=== PATIENT | female | born 1955 | race Caucasian/White ===

== ENCOUNTER → 2020-11-25 | Outpatient (CLI) | payer BC ==
[~2020-11-25] MED LIST: ATOR40TA75 PO; DICY10CA13 PO; IBUP200C25 PO; LOSA50TA88 PO; MONT10TA10 PO; PREV15CA PO; ROSU20TA5 PO; VITMTA PO
== END ==
LOC: M LABSMTC 09:29
PROVIDERS: ATTEND Anesthesiology
DX: Z01.818 Encounter for other preprocedural examination (principal); Z11.52 Encounter for screening for COVID-19

== ENCOUNTER 2020-11-30 11:34 | Day surgery (SDC) | payer BC, OTHER ==
[~2020-11-30] VITALS: Ht 160 cm; Wt 90.7 kg
[~2020-11-30 11:34] MED LIST changes: +NS 1,000 ML IV ONE
[2020-11-30] MEDS ORDERED: LIDOCAINE 2% 100MG/5ML SDV (FOR ANES.) As Ordered ONE (11:42)
[2020-11-30] MEDS ORDERED: propofoL 200 MG/20 ML VIAL As Ordered ONE (11:42)
[2020-11-30] MEDS ORDERED: fentaNYL 100 MCG/2 ML INJECTION (J3010) As Ordered ONE (11:42)
--- NOTE | 2020-11-30 13:22 | ROOR ---
Patient Name: Susie Segovia Procedure Date: 11/30/2020 1:07 PM Date of : 1955 Age: 65 Room: [facility] Gender: Female Note Status: Finalized Procedure: Upper GI endoscopy Indications: Heartburn, Melena Providers: Osmany HANSEN MD Referring MD: Andrew Davis MD Requesting Provider: Medicines: Monitored Anesthesia Care Complications: No immediate complications. Procedure: Pre-Anesthesia Assessment: - The heart rate, respiratory rate, oxygen saturations, blood pressure, adequacy of pulmonary ventilation, and response to care were monitored throughout the procedure. The Endoscope was introduced through the mouth, and advanced to the second part of duodenum. The upper GI endoscopy was accomplished without difficulty. The patient tolerated the procedure well. Findings: A small/medium-sized hiatal hernia was present. The exam was otherwise without abnormality. Impression: - Small/medium-sized hiatal hernia. - The examination was otherwise normal. - No specimens collected. Recommendation: - Continue present medications. - Observe patient's clinical course. Procedure Code(s): --- Professional --- 92317, Esophagogastroduodenoscopy, flexible, transoral; diagnostic, including collection of specimen(s) by brushing or washing, when performed (separate procedure) Diagnosis Code(s): --- Professional --- K44.9, Diaphragmatic hernia without obstruction or gangrene R12, Heartburn K92.1, Melena (includes Hematochezia) CPT copyright 2019 [employer]. All rights reserved. The codes documented in this report are preliminary and upon chief specialist leed review may be revised to meet current compliance requirements. Osmany Hansen MD Osmany HANSEN MD 11/30/2020 1:22:01 PM Electronically signed by Osmany HANSEN MD Number of Addenda: 0 Note Initiated On: 11/30/2020 1:07 PM Estimated Blood Loss: Estimated blood loss: none.
--- NOTE | 2020-11-30 13:46 | ROOR ---
Patient Name: Susie Segovia Procedure Date: 11/30/2020 1:08 PM Date of : 1955 Age: 65 Room: [facility] Gender: Female Note Status: Finalized Procedure: Colonoscopy Indications: Suspected irritable bowel syndrome, Constipation, Diarrhea (resolved) Providers: Osmany HANSEN MD Referring MD: Andrew Davis MD Requesting Provider: Medicines: Propofol per Anesthesia Complications: No immediate complications. Procedure: Pre-Anesthesia Assessment: - The heart rate, respiratory rate, oxygen saturations, blood pressure, adequacy of pulmonary ventilation, and response to care were monitored throughout the procedure. The Colonoscope was introduced through the anus and advanced to 10 cm into the ileum. The colonoscopy was performed without difficulty. The patient tolerated the procedure well. The quality of the bowel preparation was good. Findings: The perianal and digital rectal examinations were normal. A 3 mm polyp was found in the ascending colon. The polyp was sessile. The polyp was removed with a jumbo cold forceps. Resection and retrieval were complete. Internal hemorrhoids were found during retroflexion. The hemorrhoids were small. The proximal sigmoid colon was moderately tortuous. The exam was otherwise without abnormality on direct and retroflexion views. Biopsies for histology were taken with a cold forceps for evaluation of microscopic colitis. Impression: - One 3 mm polyp in the ascending colon, removed with a jumbo cold forceps. Resected and retrieved. - Internal hemorrhoids. - The colon and terminal ileum examinations are otherwise normal on direct and retroflexion views. - Biopsies were taken with a cold forceps for evaluation of microscopic colitis. Recommendation: - Repeat colonoscopy in 5 years for surveillance. - Telephone endoscopist for pathology results in 2 weeks. Procedure Code(s): --- Professional --- 73068, Colonoscopy, flexible; with biopsy, single or multiple Diagnosis Code(s): --- Professional --- Q43.8, Other specified congenital malformations of intestine R19.7, Diarrhea, unspecified K59.00, Constipation, unspecified K64.8, Other hemorrhoids K63.5, Polyp of colon CPT copyright 2019 [employer]. All rights reserved. The codes documented in this report are preliminary and upon medicaid collection specialist review may be revised to meet current compliance requirements. Osmany Hansen MD Osmany HANSEN MD 11/30/2020 1:45:36 PM Electronically signed by Osmany HANSEN MD Number of Addenda: 0 Note Initiated On: 11/30/2020 1:08 PM Estimated Blood Loss: Estimated blood loss: none.
[2020-11-30 14:18] VITALS: BP 147/76
== END 2020-11-30 14:17 | disposition home or self-care (01) ==
LOC: M OPP 11:34
PROVIDERS: ATTEND Internal Medicine Gastroenterology
DX: Q43.8 Other specified congenital malformations of intestine (principal); K63.5 Polyp of colon; K64.8 Other hemorrhoids; K59.00 Constipation, unspecified; K44.9 Diaphragmatic hernia without obstruction or gangrene; R12 Heartburn; K92.1 Melena; Z79.899 Other long term (current) drug therapy
CPT/HCPCS: 43235; 45380; 88305; J3010

== ENCOUNTER → 2021-02-28 | Outpatient (REF) | payer OTHER ==
[~2021-02-28] MED LIST changes: -NS 1,000 ML IV ONE
== END ==
LOC: M LAB REF 11:30
PROVIDERS: ATTEND Internal Medicine Gastroenterology
DX: R19.7 Diarrhea, unspecified (principal)

== ENCOUNTER → 2021-03-12 | Outpatient (CLI) | payer OTHER ==
[2021-03-12 18:17] LABS: FREE T4 0.95 NG/DL (0.76-1.46); THYROID STIMULATING HORMONE 0.513 uIU/ML (0.358-3.740)
== END ==
LOC: M LAB 16:30
PROVIDERS: ATTEND Internal Medicine Gastroenterology
DX: K58.2 Mixed irritable bowel syndrome (principal)

== ENCOUNTER → 2021-04-30 | Outpatient (CLI) | payer OTHER ==
--- NOTE | 2021-04-30 11:45 | REP ---
INDICATION: GERD, GASTROPARESIS. COMPARISON: None. TECHNIQUE/RADIOTRACER AND DOSE: 1.05 mCi of Technetium-99m sulfur colloid was ingested in two scrambled eggs and 6 ounces of water and sequential anterior and posterior images are acquired for an 89-minute imaging observation period. Regions of interest are drawn around the stomach to plot gastric emptying. FINDINGS: Expected T1/2 is 90 minutes. Twenty-nine% emptying is observed in this patient during the 89-minute imaging observation period, for a calculated T1/2 in this patient of 125 minutes. IMPRESSION: Minimally delayed gastric emptying. <Electronically signed by Blu Stern > 04/30/21 [id number]
== END ==
LOC: M RAD 08:11
PROVIDERS: ATTEND Internal Medicine Gastroenterology
DX: K21.9 Gastro-esophageal reflux disease without esophagitis (principal); K31.84 Gastroparesis
CPT/HCPCS: 78264; A9541